=== PATIENT | male | born 2005 | race Caucasian/White ===

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

== ENCOUNTER 2025-03-28 10:44 | Outpatient (CLI) | payer OTHER, SELFPAY ==
--- NOTE | ~2025-03-28 | XR_ITS ---
Left Hand Technique: PA, oblique, and lateral views were obtained. Clinical History: Pain Findings: No acute fracture or dislocation is seen. Osseous alignment is anatomic. Joint spaces are p reserved. Soft tissues are unremarkable. Impression: Unremarkable left hand. Reviewed, dictated and finalized at location M. Impression: Unremarkable left hand.
--- NOTE | ~2025-03-28 | XR_ITS ---
Right Hand Technique: PA, oblique, and lateral views were obtained. Clinical History: Pain Findings: No acute fracture or dislocation is seen. Osseous alignment is anatomic. Joint spaces are p reserved. Soft tissues are unremarkable. Impression: Unremarkable right hand. Reviewed, dictated and finalized at location M. Impression: Unremarkable right hand.
--- OUTSIDE RECORDS SUMMARY | 2025-03-28 10:51 | XMS_ITS | Data Portability ---
Author Organization [facility] [employer], Main Office Address [address] [place] [address] Assessment Encounter Date Assessment Date Assessment LastModified by Organization Details LastModified Time 02/08/2023 02/08/2023 This note is dictated and transcribed by [employer]. Sound Controller variances may occur. Despite proofreading, typographical errors may occur. [email or web address] Not available 02/08/2023 09:55:36 Plan of Treatment Reminders Order Date Submit Date Provider Last Modified By Organization Details Last Modified Time Details Appointments New Patient 30 2024 09:30A M Rowena Sanon NP Not available Not available Not available Lab None recorded. Referral cardiolog ist referral - Atypical chest pain . ECG borderlin e . suggestiv e of cor pulmonale ? Advised to cut back on his marijuana . . Please eval and treat. Thanks . Mom passed last year colon cancer , Dad had a heart attack , is doing fine now . I have not ordered a CXR yet. Please call to schedule an appointme nt. Thank you. 2024 025 [facility] Referral Fax Line, [address], [facility] [address], [place], [address], 12/21/2024 12:30:00 Procedures None recorded. Surgeries None recorded. Imaging XR, hand, 3 or more view 2024 025 [facility], [address], [address], [place], [address], 03/28/2025 10:45:36 electroca rdiogram 2024 025 [facility], [facility], [address], [place], [address], 12/21/2024 08:43:25 XR, foot, 3 or more view 2022 023 [email or web address] [facility] Karina Middleton, [address], [place], [address], 02/08/2023 09:57:07 Medication Orders None recorded. Patient TargetsNo targets recorded. Patient Instructions Encounter Date Encounter Id Patient Instructions Last Modified By Organization Details Last Modified Time 12/18/2024 [id number] he will cut back on marijuana . I wanted to put him on something for anxiety , he did not want anything . I wrote down : book Finding Your Strength in Difficult Times by uri Spann. Wrote down Marisela Ins[employer] . I advised a therapist , he did not want to . [email or web address] Not available 12/18/2024 12:30:40 Reason for Referral Supervisor Final Referral for Ch est pain Atypical chest pain . ECG borderline . suggestive of cor pulmonale ? Advised to cut back on his marijuana . . Please eval and treat. Thanks . Mom passed last year colon cancer , Dad had a heart attack , is doing fine now . I have not ordered a CXR yet. Please call to schedule an appointment. Thank you. Referring Physician: Percy F[place]on, Family Medicine, Encounter Date: 12/18/2024 Results Created Date Observation Date Name Description Value Unit Range Abnormal Flag Note LastModifiedBy Organization Detail LastModifiedTime 02/09/20 23 XR, foot, 3 or more view No observ ation record ed. [email or web address] [facility] Karina Middleton [address], [place], [address], 02/08/2023 09:57:07 03/17/20 24 03/16/2024 XR, hand, 3 or more view No observ ation record ed. [email or web address] [place] [address] [address], [place], [address], 04/12/2024 13:21:12 03/17/20 24 03/16/2024 XR, hip, unila teral , 2 or 3 view No observ ation record ed. [email or web address] [facility] [address], [place], [address], 04/12/2024 13:21:56 12/19/19 elect reg hernandez am No observ ation record ed. [email or web address] [facility] [address], [place], [address], 12/18/2024 11:56:53 01/02/20 25 01/01/2025 imagi ng/di agnos tic resul t No observ ation record ed. [facility] [address], [place], [address], 01/01/2025 17:00:19 02/03/20 25 01/30/2025 imagi ng/di agnos tic resul t No observ ation record ed. [facility] [address], [place], [address], 02/02/2025 11:41:04 Result Notes None recorded. Problems Name Problem SNOMED Code Status Onset Date Resolution Date Notes Provider Name and Address Organization Details Recorded Time Postoperat scott pain 561371987 Active 2020 Not Available [facility] 3 22:44:08 Lichen planus 9501574 Active 2020 Not Available [facility] 3 22:44:09 Anticipato ry grief 84322595 Active 2022 MOON Winslow [address], [address], [place], [address] , [facility] [employer] [facility] [employer] 3 13:44:37 Pain in both feet 8618676597866 9102 Active 2022 Rajesh Ceballos DPM [address], [address], [place], [address] , [facility] [employer] [facility] [email or web address] 3 09:55:51 Congenital pes planus 68328954 Active 2022 Rajesh Ceballos DPM [address] [facility] [address], [address], [place], [address] , [employer] [facility] [employer] 3 09:55:57 Chest pain 28811803 Active 2024 STACY Díaz [address], [facility] [address], [place], [address] , [facility] [employer] [facility] [employer] 5 11:56:43 Pain of bilateral hands 1234221995903 9109 Active 2024 MILAGROS Lion [address] [facility], [facility] [address], [place], [address] , [employer] [facility] [employer] 5 10:36:18 Problem Notes None recorded. Medical Equipment None Reported. Allergies No known drug allergies Medications Name Sig Start Date Stop Date Status Note LastModified by Organization Details LastModified Time amoxicillin 500 mg capsule 12/18 completed Not Available Not Available Not Available ibuprofen 800 mg tablet 12/18 completed Not Available Not Available Not Available hydrocodone 5 mg-acetamin ophen 325 mg tablet TAKE 1 TABLET BY MOUTH EVERY 6 HOURS NEEDED FOR PAIN 12/18 completed Not Available Not Available Not Available urea 40 % topical cream APPLY TO SKIN LESSIONS TWICE A DAY 02/08 completed Not Available Not Available Not Available acetaminoph en 500 mg tablet TAKE 2 TABLETS BY MOUTH 3 TIMES A DAY NEEDED FOR PAIN FOR 7 DAYS 12/18 completed Not Available Not Available Not Available urea 39 % topical cream apply to skin lesions twice daily 02/08 completed Not Available Not Available Not Available Vitals Date Recorded Body weight Body temperature Heart rate Oxygen saturation Oxygen saturation in Arterial blood by Pulse oximetry Systolic And Diastolic Provider Name and Address Organization Details Last Updated DateTime 3 29205.1 9 g 97.8 [degF] 92 /min 98 % 98 % 122/88 mm[Hg] Radha Vora MA [facility] [employer] 3 08:17:51 Date Recorded Body weight Body temperature Heart rate Oxygen saturation Oxygen saturation in Arterial blood by Pulse oximetry Systolic And Diastolic Provider Name and Address Organization Details Last Updated DateTime 5 24557.2 3 g 97.3 [degF] 103 /min 98 % 98 % 124/72 mm[Hg] Suellen Rodríguez [facility] [employer] [facility] 5 11:38:32 Date Recorded Body mass index (BMI) [Percentile] Per age and sex Body mass index (BMI) Body height Provider Name and Address Organization Details Last Updated DateTime 02/08/2023 23 % 19.5 kg/m2 175.26 cm Karin Aimee [facility] [employer] [facility] 02/08/2023 09:18:31 Date Recorded Body weight Heart rate Respiratory rate Oxygen saturation Oxygen saturation in Arterial blood by Pulse oximetry Systolic And Diastolic Provider Name and Address Organization Details Last Updated DateTime 3 54211.1 9 g 61 /min 13.99 /min 99 % 99 % 111/73 mm[Hg] Kaity Velasquez [facility] [employer] [facility] 3 09:18:20 Date Recorded Body height Body mass index (BMI) [Percentile] Per age and sex Body mass index (BMI) Body weight Body temperature Heart rate Oxygen saturation Oxygen saturation in Arterial blood by Pulse oximetry Systolic And Diastolic Provider Name and Address Organization Details Last Updated DateTime 5 175.26 cm 16 % 20.1 kg/m2 18837.5 6 g 98.1 [degF] 98 /min 98 % 98 % 120/72 mm[Hg] Franklingiovanni Perez [facility] [employer] [facility] 5 10:26:33 Social History Question Answer Notes LastModified by Organizat ion Details LastModified Time Tobacco Smoking Status Never Smoker Not Available [employer] 11/18/2022 22:42:41 What Is Your Level Of Caffeine Consumption? Occasional Information not available 03/28/2025 In The 14 Days Before Symptom Onset, Have You Had Close Contact With A Laboratory-confi rmed COVID-19 While That Case Was Ill? No [id number] Information not available 11/18/2022 In The 14 Days Before Symptom Onset, Have You Had Close Contact With A Person Who Is Under Investigation For COVID-19 While That Person Was Ill? No MIGRATION.61389 11366 Information not available 11/18/2022 What Type Of Diet Are You Following? REGULAR MIGRATION.73783 31348 Information not available 11/18/2022 Which Illicit Or Recreational Drugs Have You Used? Marijuana Information not available 03/28/2025 What Is The Highest Grade Or Level Of School You Have Completed Or The Highest Degree You Have Received? [id number] Information not available 03/28/2025 Have There Been Any Changes To Your Family Or Social Situation? Yes Lost Mother 2023 Due To Cancer Information not available 12/18/2024 Are There Any Guns Present In Your Home? No MIGRATION.37265 35115 Information not available 11/18/2022 What Is Your Home Situation? Father Information not available 12/18/2024 Do You Use Insect Repellent Routinely? No Information not available 03/28/2025 Where Do You Live? SingleLevelHouse Information not available 03/28/2025 What Was The Date Of Your Most Recent Tobacco Screening? 03/28/2025 Information not available 03/28/2025 What Is Your Parents' Marital Status? MIGRATION.36452 50801 Information not available 11/18/2022 Do You Have Any Pets? Yes Information not available 03/28/2025 What Is Your Relationship Status? Single Information not available 03/28/2025 Do You Use Your Seat Belt Or Car Seat Routinely? Yes MIGRATION.06787 01766 Information not available 11/18/2022 Do You Have Any Siblings? 2 Sisters Older MIGRATION.17953 46496 Information not available 11/18/2022 Do You Have Smoke And Carbon Monoxide Detectors In Your Home? Yes MIGRATION.81783 08528 Information not available 11/18/2022 Are There Any Smokers In Your House? No MIGRATION.82284 77857 Information not available 11/18/2022 Do You Participate In Social Media? Yes Information not available 12/18/2024 What Types Of Sporting Activities Do You Participate In? None MIGRATION.82346 51746 Information not available 11/18/2022 Do You Use Sunscreen Routinely? No MIGRATION.16419 24464 Information not available 11/18/2022 Have You Recently Traveled Abroad? No MIGRATION.44047 60750 Information not available 11/18/2022 Have You Used IV Drugs? No Information not available 03/28/2025 Are You Currently In School? No Information not available 03/28/2025 Do You Have Any Dietary Restrictions? No Information not available 03/28/2025 Sex: Male Functional Status Question Answer Note LastModified by Organizat [employer] Details LastModified Time Do you use any illicit or recreational drugs? Yes Information not available 03/28/2025 Do you or have you ever used any other forms of tobacco or nicotine? No Information not available 03/28/2025 What is your level of alcohol consumption? None MIGRATION.[id number] 26 Information not available 11/18/2022 Are you currently employed? Yes Information not available 03/28/2025 What is your exercise level? None MIGRATION.[id number] 26 Information not available 11/18/2022 Mental Status Question Answer Note LastModified by Organizat [employer] Details LastModified Time Do you feel stressed (tense, restless, nervous, or anxious, or unable to sleep at night)? [id number] Information not available 03/28/2025 Are you or have you been involved with bullying? No MIGRATION.[id number] 6 Information not available 11/18/2022 Family History Relationship Description Onset Age of this Age Resolved Age Notes LastModified by Organization Details LastModified Time Mother Hypertensive disorder [id number].512 [id number] Not available 11/18/2022 22:42:56 Mother Malignant tumor of colon MIGRATION.502 [id number] Not available 11/18/2022 22:42:56 Father Hypertensive disorder MIGRATION.020 [id number] Not available 11/18/2022 22:42:56 Paternal Grandfather Family history of stroke MIGRATION.163 [id number] Not available 11/18/2022 22:42:56 Mother Diabetes mellitus [email or web address] Not available 2022 09:19:25 Mother Arthritis [email or web address] Not available 02/08/2023 09:19:33 Mother Heartburn Not availa ble 12/18/2024 11:34:27 Medical History Condition Response BLINDNESS N RHEUMATIC FEVER N KIDNEY STONES N BLADDER PROBLEMS N MRSA N OTHER # 1 N POLIO N LUNG DISEASE/DISORDER N COPD N RADIATION / CHEMOTHERAPY N Other # 2 N BLOOD DISEASES N SURGERY N EAR OR HEARING PROBLEMS N MUMPS N BOWEL PROBLEMS N FEMALE PROBLEMS / INFECTIONS N DEPRESSION (INCLUDING POST ) N STROKE/TIA N THYROID DISEASE N ULCERS N BENIGN PROSTATIC HYPERPLASIA N MEASLES N CERVICALGIA N TB SKIN TEST N MYOCARDIAL INFARCTION N OBESITY N PARAPELGIA N GERD/NAUSEA N ANEURYSM N URINARY/BLADDER/KIDNEY PROBLEMS N CORONARY ARTERY DISEASE (CAD) N MENIERE'S DISEASE N ADDICTION CONCERNS N ENDOMETRIOSIS N USE OF BLOOD THINNERS N SKIN PROBLEMS N EMPHYSEMA N GASTROINTESTINAL DISORDER N MUSCLE,JOINT OR BONE PROBLEMS N GASTROINTESTINAL BLEEDING N BLOOD CLOTS N ASTHMA N CATARACTS N ERECTILE DYSFUNCTION N GI PROBLEMS N CHF N Low Testosterone N NEUROPATHY N INFERTILITY N AIDS/HIV N FRACTURES N CHEMOTHERAPY / RADIATION N VISION/EYE PROBLEMS N LIVER DISEASE N MALE HYPOGONADISM N HYPERTENSION N ANXIETY DISORDER N BLOOD TRANSFUSION N ANEMIA/BLOOD DISORDER N CHRONIC EAR INFECTIONS N BRONCHITIS N TUBERCULOSIS N GLAUCOMA N FOOT PROBLEM N DIVERTICULITIS N CHICKENPOX N SLEEP APNEA N ALLERGIES/HAYFEVER N INFECTIOUS DISEASE N HEART ARRHYTHMIA N PROSTATE N INSOMNIA N HIGH CHOLESTEROL / HYPERLIPIDEMIA N HYPERTHYROIDISM N EYE PROBLEMS N EATING DISORDER N NEUROLOGICAL PROBLEMS N EDEMA N CHRONIC PAIN SYNDROME N HYPOTHYROIDISM N CAROTID BLOCKAGE N CONSTIPATION N BACK / NECK PROBLEMS N HAVE YOU BEEN HOSPITALIZED OR SEEN IN [facility] IN THE PAST YEAR ? N ATHEROSCLEROSIS N BREAST PROBLEMS N DIALYSIS N ECZEMA N FIBROMYALGIA N OSTEOPOROSIS N ARTHRITIS N NO SIGNIFICANT PAST MEDICAL HISTORY N APPENDICITIS N DIABETES, TYPE N BAD TEETH N HEARTBURN / REFLUX Y ADD/ADHD N AUTISM SPECTRUM DISORDER (ASD) N HEPATITIS / LIVER DISEASE N PULMONARY DISEASE N GOUT N SLEEP DISORDER N ALZHEIMER'S DISEASE N PAIN N HERPES N DEMENTIA N HEADACHES/MIGRAINES Y SEIZURES/EPILEPSY N VASCULAR DISEASE N PACEMAKER N DIZZINESS N HEART DISEASE/HEART PROBLEMS N KIDNEY DISEASE N DEVELOPMENTAL OR BEHAVIORAL DISORDERS N MULTIPLE SCLEROSIS N SCARLET FEVER N MENTAL DISORDER/ILLNESS N CARDIAC ARRHYTHMIA N CANCER: SPECIFY N PNEUMONIA N ATRIAL FIBRILLATION N Gall Stones N PULMONARY EMBOLISM N AUTOIMMUNE DISEASE N Immunizations Vaccine Type Date Status Note Provider Nam e and Address Organization Details Recorded Time Influenza, split virus, quadrivalent, PF 1 completed Not Available [facility] 11/18/2022 22:45:23 Hib, unspecified formulation 6 completed Sabina Hood, HYDRODYNAMICIST [address], [facility] [address], [place], [address], [place] [facility] 05/30/2024 12:12:01 Hib, unspecified formulation 7 completed Sabina Hood APRN [address], [address], [place], [address], [place] [facility] 05/30/2024 12:12:01 Hib, unspecified formulation 6 completed Sabina Hood APRN [address], [address], [place], [address], [place] [facility] 05/30/2024 12:12:01 HPV9 5 completed Sabina Hood APRN [address], [address], [place], [address], [place] [facility] 05/30/2024 12:12:01 HPV9 5 completed Sabina Hood APRN [address], [address], [place], [address], [place] [facility] 05/30/2024 12:12:01 IPV 6 completed Sabina Hood APRN [address], [address], [place], [address], [place] [facility] 05/30/2024 12:12:01 IPV 6 completed Sabina Hood APRN [address], [address], [place], [address], [place] [facility] 05/30/2024 12:12:01 IPV 6 completed Sabina Hood APRN [address], [address], [place], [address], [place] [facility] 05/30/2024 12:12:01 MMR 1 completed Sabina Hood APRN [address], [address], [place], [address], [place] [facility] 05/30/2024 12:12:01 MMR 7 completed Sabina Hood APRN [address], [address], [place], [address], [facility] 05/30/2024 12:12:01 COVID-19, mRNA, LNP-S, PF, 30 mcg/0.3 mL dose 1 completed Sabina Hood APRN [address], [address], [place], [address], [facility] 05/30/2024 12:12:01 pneumococcal conjugate PCV 7 [address], [place], [address], [facility] 05/30/2024 12:12:01 DTaP-IPV 0 completed JENNIFER [address], [place], [address], [facility] 05/30/2024 12:12:01 influenza, unspecified formulation 8 completed JENNIFER [address], [place], [address], [facility] 05/30/2024 12:12:01 Tdap 7 completed JENN[address], [place], [address], [facility] 05/30/2024 12:12:01 Pneumococcal conjugate PCV 13 7 completed [address]ENN[address], [place], [address], [facility] 05/30/2024 12:12:01 Pneumococcal conjugate PCV 13 7 completed [address]ENN[address], [place], [address], [facility] 05/30/2024 12:12:01 Pneumococcal conjugate PCV 13 6 completed [address]ENN[address], [place], [address], [facility] 05/30/2024 12:12:01 varicella 1 completed Sabina Hood APRN [address], [address], [place], [address], [employer] [facility] [employer] [facility] 05/30/2024 12:12:01 varicella 7 completed Sabina Hood APRN [address], [address], [place], [address], [employer] [facility] 05/30/2024 12:12:01 HPV, quadrivalent 5 completed Sabina Hood APRN [address], [address], [place], [address], [employer] [facility] 05/30/2024 12:12:01 Hep B, adolescent or pediatric 6 completed Sabina Hood APRN [address], [address], [place], [address], [employer] [facility] 05/30/2024 12:12:01 Hep B, adolescent or pediatric 6 completed Sabina Hood APRN [address], [address], [place], [address], [employer] [facility] 05/30/2024 12:12:01 Hep B, adolescent or pediatric 6 completed [address], [place], [address], [employer] [facility] 05/30/2024 12:12:01 Hep A, ped/adol, 2 dose 0 completed Sabina Hood APRN [address], [address], [place], [address], [employer] [facility] 05/30/2024 12:12:01 Hep A, pediatric, unspecified formulation 8 completed Sabina Hood APRN [address], [address], [place], [address], [employer] [facility] 05/30/2024 12:12:01 Hep A, pediatric, unspecified formulation 7 completed Sabina Hood APRN [address], [address], [place], [address], [facility] 05/30/2024 12:12:01 meningococcal MCV4P 7 completed Sabina Hood APRN [address], [address], [place], [address], [facility] 05/30/2024 12:12:01 DTaP 6 completed Sabina Hood APRN [address], [address], [place], [address], [facility] 05/30/2024 12:12:01 DTaP 7 ashlee Hood APRN [address], [address], [place], [address], [facility] 05/30/2024 12:12:01 DTaP [address], [place], [address], [facility] 05/30/2024 12:12:01 DTaP 6 ashlee Hood APRN [address], [address], [place], [address], [facility] 05/30/2024 12:12:01 Influenza, split virus, quadrivalent, PF 0 completed JENNIFER [address], [place], [address], [facility] 05/30/2024 12:12:01 Influenza, split virus, quadrivalent, PF 7 completed Sabina Hood APRN [address], [address], [place], [address], [facility] 05/30/2024 12:12:01 Influenza, split virus, quadrivalent, PF 5 completed Sabina Hood APRN [address], [address], [place], [address], [place] [facility] [employer] 05/30/2024 12:12:01 Influenza, split virus, quadrivalent, PF 1 completed Sabina Hood, HYDRODYNAMICIST [address] [facility], [facility] [address], [place], [address], [facility] - [facility] [employer] 05/30/2024 12:12:01 Meningococcal MCV4O 3 completed Radha Parkinson LPN null, [place] [employer] 06/15/2023 08:44:07 Past Encounters Encounter ID Performer Location Encounter Start Date Encounter Closed Date Diagnosis/Indication Diagnosis SNOMED-CT Code Diagnosis ICD10 Code Diagnosis Note [id number] MOON Winslow [facility] [address] [place] [address] 2020 00:00:00 2020 09:04:48 [id number] [facility] [place] [address] [place] [address] 12/18/2020 00:00:00 12/18/2020 13:15:54 [id number] [facility] [place] [address] [place] [address] 01/06/2021 00:00:00 01/06/2021 15:21:10 [id number] [facility] [place] [address] [place] [address] 02/03/2021 00:00:00 02/10/2021 09:45:49 [id number] Lina Hammonds MD [facility] [address] [place] [address] 07/18/2021 00:00:00 07/18/2021 18:13:17 [id number] Lina Hammonds MD [facility] [address] [place] [address] 11/19/2021 00:00:00 11/19/2021 15:11:59 [id number] MOON Winslow [facility] [address] [facility] [place] [address] 12/01/2022 08:05:41 12/01/2022 09:03:04 Well child visit [id number] Z00.129 Well Child Normal growth and developmen t. Discussed increased activity level to maintain healthy weight. Encouraged limiting television , video games, and other sedentary activities . Discussed adolescent behaviors, as well as physical/m ental changes associated with puberty. Reviewed safe sex practices. Discussed maintainin g a quiet area for homework and sticking to a routine. Reviewed avoidance of ETOH/Tobac co/Drugs/G uns. Recommend annual vision/hea ring/denta l screenings . Requires a meningitis vaccination [id number] Z28.39 Anticipatory grief 99471 004 F43.21 Pts mother has terminal colo-recta l cancer. Has been given about 1 year. [id number] Rajesh Ceballos DPM [facility] Podiatry [place] [address] [place] [address] 02/08/2023 09:12:57 02/08/2023 10:01:49 Congenital pes planus [id number] Q66.51 Q66.52 reviewed treatment options with the patientRx custom orthoticsR ecommend custom orthotics and prescribed custom orthotics to stabilize foot structure, reduce stress on joints, relieve pain and improve foot function. No guarantees were given for effectiven ess. Patient understand s these are to help reduce pain and improve foot function. Patient agrees to proceed. custom orthotics todayDiscu ssed supportive shoe gearfollow -up 5 months Pain in both feet 100023 5917 [id number] M79.671 M79.672 as above [id number] Lina Hammonds MD [facility] Primary [facility] [address] [facility] [address] [place] [address] 06/15/2023 08:27:28 08/11/2023 16:18:47 [id number] Norbert Escamilla MD [facility] Family [address] [address] 12/18/2024 11:26:14 12/18/2024 12:19:46 Chest pain [id number] R07.9 [id number] MILAGROS Lion [facility] Primary Care Brandi soto [address] [facility] [address] [place] [address] 03/28/2025 10:04:20 03/28/2025 10:41:05 Adult health examination [id number] Z00.00 Discussed medication compliance and routine follow up.Discuss ed healthy diet and routine exercise.Mehdi de souzawed vaccine records and made recommenda tions as needed.Enc ouraged annual eye and dental exams, as well as twice yearly dental cleanings. Pain of bi lateral hands [id number] M79.641 M79.642 Will order imaging as listed below. Will consider referral to hand specialist . Health Concerns Section Related Observation LastModified by Organization Detai ls LastModified Time None Recorded Concern Status LastModified by Organization Details LastModified Time None Recorded Advance Directives Directive None Recorded Payers Insurance Date Sequence Insurance Name Policy Number Policy Dia Covered Member ID Dia Member ID Guarantor Name 12/18/2024 1 [place] [id number] Renetta Umana [id number] Renetta Umana 03/25/2025 1 [employer] [id number] Dimitris Dong [id number] Renetta Umana Notes Date Note Type Note Provider Name and Address Organization Details Recorded Time 12/01/2022 text/html 1. Pt in office with son for annual well visit. Pt denies any new medical concerns at this time.2. Pts father reports pts mother is being tx'd for colo-rectal cancer and has been given about 1 year. MOON Winslow [address] [facility] [address], [place], [address], [facility] 12/01/2022 13:47:25 02/08/2023 text/html . Patient is 17-year-old male who presents the office with complaints of bilateral foot pain. Patient states that when he is walking he has pain in his midfoot. Patient denies any injury or wounds. Patient states he has had orthotics in the past. Patient states he currently does not have any. Patient states when he is at rest he does not have any pain. Patient is a experiencing no pain at this visit. Patient denies any other complaints. Rajesh Ceballos DPM [address] [place] [address], [place], [address], [employer] 02/08/2023 09:57:40 12/18/2024 text/html mom passed colon cancer last year. Dad had a heart attack . does smoke marijuana . no exertional chest pain ., no sob . STACY Díaz [address] [facility] [address], [place], [address], [employer] 12/18/2024 12:30:56 03/28/2025 text/html Patient is a 19 year old male that presents to the office for annual wellness. Patient reports he is doing well overall and does not take any daily medications. Patient reports he has been having bilateral hand pain since starting a new job, patient has been replacing heavy storm windows. Patient reports pain is primarily when he bends his fingers, he feels the pain on the top of his hands. labs-not neededFlu- declinesCovid- initial doseTdap- UTD MILAGROS Lion [address], [place] [address], [place], [address], [employer] [facility] [employer] 03/28/2025 10:51:48
--- OUTSIDE RECORDS SUMMARY | 2025-03-28 10:52 | XMS_ITS | Continuity of Care Document ---
Author Organization [place], [facility] [place] Address [address] [place] [address] Assessment No assessment recorded. Plan of Treatment Reminders Order Date Submit Date Provider Last Modified By Organization Details Last Modified Time Details Appointments New Patient 30 2024 09:30A M Rowena Sanon NP Not available Not available Not available Lab None recorded . Referral None recorded . Procedures None recorded . Surgeries None recorded . Imaging XR, hand, 3 or more view 2024 025 [facility], [address] [place] [address] [address], [place], [address], 03/28/2025 10:45:36 Medication Orders None recorded . Patient TargetsNo targets recorded. Patient InstructionsNo instructions recorded. Reason for Referral None Reported. Problems Name Problem SNOMED Code Status Onset Date Resolution Date Notes Provider Name and Address Organization Details Recorded Time Postoperat scott pain 685157380 Active 2020 Not Available [facility] 3 22:44:08 Lichen planus 5031529 Active 2020 Not Available [facility] 3 22:44:09 Anticipato ry grief 59748257 Active 2022 MOON Winslow [address] [facility], [facility] [address], [place], [address] , [facility] [employer] 3 13:44:37 Pain in both feet 0504400882812 9102 Active 2022 Rajesh Ceballos DPM [address] [facility], [facility] [address], [place], [address] , [facility] [employer] [facility] [employer] 3 09:55:51 Congenital pes planus 03614028 Active 2022 Rajesh Ceballos DPM [address] [facility], [place] [address], [place], [address] , [facility] [employer] [facility] [employer] [facility] 3 09:55:57 Chest pain 84183900 Active 2024 STACY Díaz [address] [facility], [place] [address], [place], [address] , [facility] [employer] [facility] [employer] [facility] 5 11:56:43 Pain of bilateral hands 1213586757198 9109 Active 2024 MILAGROS Lion [address] [facility], [place] [address], [place], [address] , [facility] [employer] [facility] [employer] [facility] 5 10:36:18 Problem Notes None recorded. Medical [...] Available Not Available Vitals Date Recorded Body height Body mass index (BMI) [Percentile] Per age and sex Body mass index (BMI) Body weight Body temperature Heart rate Oxygen saturation Oxygen saturation in Arterial blood by Pulse oximetry Systolic And Diastolic Provider Name and Address Organization Details Last Updated DateTime 5 175.26 cm 16 % 20.1 kg/m2 52068.5 6 g 98.1 [degF] 98 /min 98 % 98 % 120/72 mm[Hg] KASH Bone [facility] [employer] [facility] 10:26:33 Social History Question Answer Notes LastModified by Organizat ion Details LastModified Time Tobacco Smoking Status Never Smoker Not Available [facility] 11/18/2022 22:42:41 What Is Your Level Of Caffeine Consumption? Occasional Information not available 03/28/2025 In The 14 Days Before Symptom Onset, Have You Had Close Contact With A Laboratory-confi rmed COVID-19 While That Case Was Ill? No MIGRATION.56326 [id number] Information not available 11/18/2022 In The 14 Days Before Symptom Onset, Have You Had Close Contact With A Person Who Is Under Investigation For COVID-19 While That Person Was Ill? No MIGRATION.23795 85938 Information not available 11/18/2022 What Type Of Diet Are You Following? REGULAR MIGRATION.24375 98546 Information not available 11/18/2022 Which Illicit Or Recreational Drugs Have You Used? Marijuana Information not available 03/28/2025 What Is The Highest Grade Or Level Of School You Have Completed Or The Highest Degree You Have Received? [id number] Information not available 03/28/2025 Have There Been Any Changes To Your Family Or Social Situation? Yes Lost Mother 2023 Due To Cancer Information not available 12/18/2024 Are There Any Guns Present In Your Home? No MIGRATION.27449 47746 Information not available 11/18/2022 What Is Your Home Situation? Father Information not available 12/18/2024 Do You Use Insect Repellent Routinely? No Information not available 03/28/2025 Where Do You Live? SingleLevelHouse Information not available 03/28/2025 What Was The Date Of Your Most Recent Tobacco Screening? 03/28/2025 Information not available 03/28/2025 What Is Your Parents' Marital Status? MIGRATION.81507 61172 Information not available 11/18/2022 Do You Have Any Pets? Yes Information not available 03/28/2025 What Is Your Relationship Status? Single Information not available 03/28/2025 Do You Use Your Seat Belt Or Car Seat Routinely? Yes MIGRATION.93776 96977 Information not available 11/18/2022 Do You Have Any Siblings? 2 Sisters Older MIGRATION.31502 57121 Information not available 11/18/2022 Do You Have Smoke And Carbon Monoxide Detectors In Your Home? Yes MIGRATION.34604 75973 Information not available 11/18/2022 Are There Any Smokers In Your House? No MIGRATION.09773 30764 Information not available 11/18/2022 Do You Participate In Social Media? Yes Information not available 12/18/2024 What Types Of Sporting Activities Do You Participate In? None MIGRATION.17484 79524 Information not available 11/18/2022 Do You Use Sunscreen Routinely? No MIGRATION.92495 53172 Information not available 11/18/2022 Have You Recently Traveled Abroad? No MIGRATION.50870 16213 Information not available 11/18/2022 Have You Used IV Drugs? No Information not available 03/28/2025 Are You Currently In School? No Information not available 03/28/2025 Do You Have Any Dietary Restrictions? No Information not available 03/28/2025 Sex: Male Functional Status Question Answer Note LastModified by Organizat ion Details LastModified Time Do you use any illicit or recreational drugs? Yes Information not available 03/28/2025 Do you or have you ever used any other forms of tobacco or nicotine? No Information not available 03/28/2025 What is your level of alcohol consumption? None MIGRATION.[id number] 26 Information not available 11/18/2022 Are you currently employed? Yes Information not available 03/28/2025 What is your exercise level? None MIGRATION.09421096 26 Information not available 11/18/2022 Mental Status Question Answer Note LastModified by Organizat ion Details LastModified Time Do you feel stressed (tense, restless, nervous, or anxious, or unable to sleep at night)? [id number] Information not available 03/28/2025 Are you or have you been involved with bullying? No MIGRATION.307637813 6 Information not available 11/18/2022 Family History Relationship Description Onset Age of this Age Resolved Age Notes LastModified by Organization Details LastModified Time Mother Hypertensive disorder MIGRATION.052 [id number] Not available 11/18/2022 22:42:56 Mother Malignant tumor of colon MIGRATION.458 [id number] Not available 11/18/2022 22:42:56 Father Hypertensive disorder MIGRATION.780 [id number] Not available 11/18/2022 22:42:56 Paternal Grandfather Family history of stroke MIGRATION.712 [id number] Not available 11/18/2022 22:42:56 Mother Diabetes mellitus [email or web address] Not available 2022 09:19:25 Mother Arthritis [email or web address] Not available 02/08/2023 09:19:33 Mother Heartburn Not availa ble 12/18/2024 11:34:27 Medical History Condition Response BLINDNESS N RHEUMATIC FEVER N KIDNEY STONES N BLADDER PROBLEMS N MRSA N OTHER # 1 N POLIO N LUNG DISEASE/DISORDER N RADIATION / CHEMOTHERAPY N COPD N Other # 2 N BLOOD DISEASES N SURGERY N EAR OR HEARING PROBLEMS N MUMPS N BOWEL PROBLEMS N FEMALE PROBLEMS / INFECTIONS N DEPRESSION (INCLUDING POST ) N STROKE/TIA N THYROID DISEASE N ULCERS N BENIGN PROSTATIC HYPERPLASIA N MEASLES N CERVICALGIA N TB SKIN TEST N MYOCARDIAL INFARCTION N PARAPELGIA N OBESITY N GERD/NAUSEA N ANEURYSM N URINARY/BLADDER/KIDNEY PROBLEMS [...] HAVE YOU BEEN HOSPITALIZED OR SEEN IN [facility] IN THE PAST YEAR ? N [...] virus, quadrivalent, PF 1 completed Not Available [facility] 11/18/2022 22:45:23 Hib, unspecified formulation 6 completed Sabina Hood APRN [address], [place], [address], [employer] 05/30/2024 12:12:01 Hib, unspecified formulation 7 completed Sabina Hood APRN [address], [place], [address], [employer] 05/30/2024 12:12:01 Hib, unspecified formulation 6 completed Sabina Hood APRN [address], [place], [address], [employer] 05/30/2024 12:12:01 HPV9 5 completed Sabina Hood APRN [address], [place], [address], [employer] 05/30/2024 12:12:01 HPV9 5 completed Sabina Hood APRN [address], [place], [address], [employer] 05/30/2024 12:12:01 IPV 6 completed Sabina Hood APRN [address], [place], [address], [employer] 05/30/2024 12:12:01 IPV 6 ashlee Hood APRN [address], [place], [address], [facility] [employer] [facility] 05/30/2024 12:12:01 IPV 6 completed Sabina Hood APRN [address], [place], [address], [facility] [employer] [facility] 05/30/2024 12:12:01 MMR 1 completed Sabina Hood APRN [address], [place], [address], [facility] [employer] [facility] 05/30/2024 12:12:01 MMR 7 completed Sabina Hood APRN [address], [place], [address], [facility] [employer] [facility] 05/30/2024 12:12:01 COVID-19, mRNA, LNP-S, PF, 30 mcg/0.3 mL dose 1 completed Sabina Hood APRN [address], [place], [address], [facility] [employer] [facility] 05/30/2024 12:12:01 pneumococcal conjugate PCV 7 6 completed Sabina Hood APRN [address], [place], [address], [facility] [employer] [facility] 05/30/2024 12:12:01 DTaP-IPV 0 completed Sabina Hood APRN [address], [place], [address], [facility] [employer] [facility] 05/30/2024 12:12:01 influenza, unspecified formulation 8 completed Sabina Hood APRN [address], [place], [address], [facility] [employer] [facility] 05/30/2024 12:12:01 Tdap 7 completed Sabina Hood APRN [address], [place], [address], [facility] [employer] [facility] 05/30/2024 12:12:01 Pneumococcal conjugate PCV 13 7 completed Sabina Hood APRN [address], [place], [address], [facility] 05/30/2024 12:12:01 Pneumococcal conjugate PCV 13 7 completed Sabina Hood APRN [address], [place], [address], [facility] 05/30/2024 12:12:01 Pneumococcal conjugate PCV 13 [address], [place], [address], [facility] [employer] [facility] 05/30/2024 12:12:01 varicella 1 completed JENNIFER [address], [place], [address], [facility] [employer] [facility] 05/30/2024 12:12:01 varicella 7 completed [address]ER Dor[address], [place], [address], [facility] [employer] [facility] 05/30/2024 12:12:01 HPV, quadrivalent 5 completed Sabina Hood APRN [address], [place], [address], [facility] [employer] [facility] 05/30/2024 12:12:01 Hep B, adolescent or pediatric [address], [place], [address], [facility] [employer] [facility] 05/30/2024 12:12:01 Hep B, adolescent or pediatric [address], [place], [address], [facility] [employer] [facility] 05/30/2024 12:12:01 Hep B, adolescent or pediatric [address], [place], [address], [facility] [employer] [facility] 05/30/2024 12:12:01 Hep A, ped/adol, 2 dose 0 completed Sabina Hood APRN [address], [place], [address], [employer] [facility] [employer] [facility] 05/30/2024 12:12:01 Hep A, pediatric, unspecified formulation 8 completed Sabina Hood APRN [address], [place], [address], [employer] [facility] [employer] [facility] 05/30/2024 12:12:01 Hep A, pediatric, unspecified formulation 7 completed Sabina Hood APRN [address], [place], [address], [employer] [facility] [employer] [facility] 05/30/2024 12:12:01 meningococcal MCV4P 7 completed Sabina Hood APRN [address], [place], [address], [employer] [facility] [employer] [facility] 05/30/2024 12:12:01 DTaP 6 completed Sabina Hood APRN [address], [place], [address], [employer] [facility] [employer] [facility] 05/30/2024 12:12:01 DTaP 7 completed Sabina Hood APRN [address], [place], [address], [employer] [facility] [employer] [facility] 05/30/2024 12:12:01 DTaP 6 completed Sabina Hood APRN [address], [place], [address], [employer] [facility] [employer] [facility] 05/30/2024 12:12:01 DTaP 6 ashlee Hood APRN [address], [place], [address], [employer] [facility] [employer] [facility] 05/30/2024 12:12:01 Influenza, split virus, quadrivalent, PF 0 completed Sabina Hood, [employer] [address], [place], [address], [facility] [employer] [facility] [employer] 05/30/2024 12:12:01 Influenza, split virus, quadrivalent, PF 7 completed Sabina Hood, [employer] [address], [place], [address], [facility] [employer] 05/30/2024 12:12:01 Influenza, split virus, quadrivalent, PF 5 completed Sabina Hood, [employer] [address], [place], [address], [employer] 05/30/2024 12:12:01 Influenza, split virus, quadrivalent, PF 1 completed Sabina Hood, [employer] [address] [facility], [place], [address], [facility] [employer] [facility] [employer] 05/30/2024 12:12:01 Meningococcal MCV4O 3 completed Radha Parkinson LPN null, [facility] [employer] 06/15/2023 08:44:07 Past Encounters Encounter ID Performer Location Encounter Start Date Encounter Closed Date Diagnosis/Indication Diagnosis SNOMED-CT Code Diagnosis ICD10 Code Diagnosis Note [id number] MILAGROS Lion [facility] [address] [place] [address] 03/28/2025 10:04:20 03/28/2025 10:41:05 Adult health examination 486927759 Z00.00 Discussed medication compliance and routine follow up.Discuss ed healthy diet and routine exercise.R eviewed vaccine records and made recommenda tions as needed.Enc ouraged annual eye and dental exams, as well as twice yearly dental cleanings. Pain of bi lateral hands [id number] M79.641 M79.642 Will order imaging as listed below. Will consider referral to hand specialist . Health Concerns Section Related Observation LastModified by Organization Detai ls LastModified Time None Recorded Concern Status LastModified by Organization Details LastModified Time None Recorded Payers Encounter Date Sequence Insurance Name Policy Number Policy Dia Covered Member ID Dia Member ID Guarantor Name 03/28/2025 1 [facility] [id number] Dimitris Umana [id number] Renetta Umana Notes Date Note Type Note Provider Name and Address Organization Details Recorded Time 03/28/2025 text/html Patient is a 19 year [...] hands. labs-not neededFlu- declinesCovid- initial doseTdap- UTD MOON Lion-Tabby [address] [facility], [facility] [address], [place], [address], [facility] [employer] 03/28/2025 10:51:48
== END 2025-03-28 10:45 | disposition home or self-care (01) ==
PROVIDERS: PCP Nurse Practitioner Family; Visit Provider Nurse Practitioner Family
DX: M79.641 Pain in right hand (principal); M79.642 Pain in left hand
CPT/HCPCS: 73130